=== PATIENT | female | born 1980 | race Caucasian/White ===

== ENCOUNTER 2021-09-14 14:30 | Emergency (ER) | payer OTHER ==
[~2021-09-14] VITALS: Wt 83.9 kg
[2021-09-14] MEDS ORDERED: Motrin,Rufen800 MG PO (16:23)
== END 2021-09-14 16:37 | disposition home or self-care (01) ==
LOC: ED 14:30
DX: S80.02XA Contusion of left knee, initial encounter (principal); Z88.6 Allergy status to analgesic agent; V43.62XA Car passenger injured in collision with other type car in traffic accident, initial encounter; Y93.89 Activity, other specified; Y92.89 Other specified places as the place of occurrence of the external cause; Y99.8 Other external cause status